=== PATIENT | male | born 1970 | race Caucasian/White ===

== ENCOUNTER 2016-07-05 16:28 | Emergency (ER) | payer BC ==
[~2016-07-05] VITALS: Wt 97.5 kg
[~2016-07-05 16:28] MED LIST: FLEXERIL5 MG PO; HYDROCODONE BIT1 T11 PO; INDOCIN50 MG PO; MOTRIN800 MG PO; NAPROSYN500 MG PO; NORCO 325 MG-7.1 TAB PO; PHENERGAN25 M1 PO; PRILOSEC20 MG PO; SEPTRA DS 800 M1 TAB PO; VICODIN 500 MG-1 TAB PO; WELLBUTRIN SR150 MG PO
[2016-07-05] MEDS ORDERED: OXYCODONE HCL5 MG PO (16:46)
[2016-07-05 17:21] LABS: BASO % 0.4 % (0.0-1.0); EOS # 0.3 10*3/uL (0.0-0.4); HEMATOCRIT 44.7 % (42.0-52.0); HEMOGLOBIN 14.6 g/dl (14.0-18.0); LYMPH # 2.1 10*3/uL (1.3-4.4); LYMPH % 21.4 % (27.0-41.0); MEAN CELL VOLUME 86.6 fl (80.0-94.0); MEAN CORPUSCULAR HGB 28.3 pg (27.0-31.0); MEAN CORPUSCULAR HGB CONC 32.7 g/dl (33.0-37.0); MEAN PLATELET VOLUME 10.2 fl (9.6-12.3); MONO # 0.9 10*3/uL (0.1-1.0); MONO % 9.2 % (3.0-9.0); NEUT # 6.5 10*3/uL (2.3-7.9); NEUT % 65.6 % (47.0-73.0); PLATELET COUNT AUTOMATED 214 10*3/uL (130-400); RED BLOOD COUNT 5.16 10*6/uL (4.50-5.90); RED CELL DISTRI WIDTH 14.2 % (0-14.5); WHITE BLOOD COUNT 9.8 10*3/uL (4.8-10.8)
[2016-07-05 17:40] LABS: ALBUMIN 3.8 gm/dl (3.1-4.5); ALKALINE PHOSPHATASE 85 U/L (45-117); BILIRUBIN, TOTAL 0.5 mg/dl (0.2-1.0); BUN 13 mg/dl (7-24); CARBON DIOXIDE 28 mmol/L (21-32); CHLORIDE 109 mmol/L (98-107); EST GLOM FILT AFRICAN AMERICAN > 60 ml/min; GLUCOSE 85 mg/dL (65-99); POTASSIUM 3.6 mmol/L (3.5-5.1); SGOT/AST 29 IU/L (3-35); SGPT/ALT 48 U/L (12-78); SODIUM 136 mmol/L (136-145); TOTAL PROTEIN 7.6 gm/dL (6.4-8.2)
[2016-07-05] MEDS ORDERED: PREDNISONE20 M1 PO (18:40)
[2016-07-05] MEDS ORDERED: AMOXICILLIN500 M2 PO (18:40)
[2016-07-05] MEDS ORDERED: DUONEB 3 MG/3 ML3 M1 INH (18:40)
== END 2016-07-05 18:44 | disposition home or self-care (01) ==
LOC: ED 16:28
PROVIDERS: Nurse Practitioner Family
DX: J20.9 Acute bronchitis, unspecified (principal)

== ENCOUNTER 2017-11-27 13:02 | Emergency (ER) | payer OTHER, BC ==
[~2017-11-27] VITALS: Ht 172.7 cm; Wt 99.8 kg
--- NOTE | ~2017-11-27 | EKG ---
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
[~2017-11-27 13:02] MED LIST changes: +AMOXICILLIN500 M2 PO; +DUONEB 3 MG/3 ML3 M1 INH; +OXYCODONE HCL5 MG PO; +PREDNISONE20 M1 PO
[2017-11-27 13:21] LABS: BASO # 0.1 10*3/uL (0.0-0.1); BASO % 0.7 % (0.0-1.0); EOS # 0.3 10*3/uL (0.0-0.4); EOS % 4.2 % (1.0-4.0); HEMATOCRIT 43.6 % (42.0-52.0); HEMOGLOBIN 14.3 g/dl (14.0-18.0); LYMPH # 1.5 10*3/uL (1.3-4.4); LYMPH % 21.3 % (27.0-41.0); MEAN CORPUSCULAR HGB 29.2 pg (27.0-31.0); MEAN CORPUSCULAR HGB CONC 32.8 g/dl (33.0-37.0); MEAN PLATELET VOLUME 10.7 fl (9.6-12.3); MONO # 0.7 10*3/uL (0.1-1.0); MONO % 9.9 % (3.0-9.0); NEUT # 4.6 10*3/uL (2.3-7.9); NEUT % 63.5 % (47.0-73.0); PLATELET COUNT AUTOMATED 178 10*3/uL (130-400); RED CELL DISTRI WIDTH 13.7 % (0-14.5); WHITE BLOOD COUNT 7.2 10*3/uL (4.8-10.8)
[2017-11-27 13:39] LABS: ALBUMIN 3.8 gm/dl (3.1-4.5); ALKALINE PHOSPHATASE 70 U/L (45-117); BUN 17 mg/dl (7-24); CHLORIDE 109 mmol/L (98-107); CREATININE 1.14 mg/dL (0.70-1.30); LIPASE 149 U/L (73-393); POTASSIUM 4.1 mmol/L (3.5-5.1); SGOT/AST 28 IU/L (3-35); SGPT/ALT 56 U/L (12-78); SODIUM 139 mmol/L (136-145); TOTAL PROTEIN 7.1 gm/dL (6.4-8.2)
[2017-11-27 13:40] LABS: TROPONIN I < 0.015 ng/ml (<0.045)
[2017-11-27] MEDS ORDERED: CHLORZOXAZONE500 M2 PO (13:45)
[2017-11-27] MEDS ORDERED: PREDNISONE10 MG PO (13:45)
== END 2017-11-27 14:18 | disposition home or self-care (01) ==
LOC: ED 13:02
PROVIDERS: Nurse Practitioner Family
DX: R07.9 Chest pain, unspecified (principal); R03.0 Elevated blood-pressure reading, without diagnosis of hypertension; Z91.030 Bee allergy status; Z79.2 Long term (current) use of antibiotics; Z79.899 Other long term (current) drug therapy

== ENCOUNTER → 2018-04-17 | Outpatient (CLI) | payer BC ==
[~2018-04-17] MED LIST changes: +CHLORZOXAZONE500 M2 PO; +PREDNISONE10 MG PO
== END | disposition home or self-care (01) ==
LOC: RAD 11:18
DX: R19.7 Diarrhea, unspecified (principal)

== ENCOUNTER 2019-09-17 17:59 | Emergency (ER) | payer BC ==
[~2019-09-17] VITALS: Ht 170.1 cm; Wt 103.0 kg
[2019-09-17] MEDS ORDERED: AUGMENTIN 875-875 MG PO (19:29)
== END 2019-09-17 19:45 | disposition home or self-care (01) ==
LOC: ED 17:59
DX: S61.303A Unspecified open wound of left middle finger with damage to nail, initial encounter (principal); S61.302A Unspecified open wound of right middle finger with damage to nail, initial encounter; Z79.899 Other long term (current) drug therapy; Z91.030 Bee allergy status; W54.0XXA Bitten by dog, initial encounter; Y93.89 Activity, other specified; Y92.89 Other specified places as the place of occurrence of the external cause; Y99.8 Other external cause status

== ENCOUNTER 2020-02-11 11:00 | Emergency (ER) | payer OTHER, BC ==
[~2020-02-11] VITALS: Ht 170.1 cm; Wt 102.5 kg
[~2020-02-11 11:00] MED LIST changes: +AUGMENTIN 875-875 MG PO
== END 2020-02-11 12:17 | disposition home or self-care (01) ==
LOC: ED 11:00
DX: J06.9 Acute upper respiratory infection, unspecified (principal); R05 Cough; Z91.030 Bee allergy status; Z79.899 Other long term (current) drug therapy; Z20.828 Contact with and (suspected) exposure to other viral communicable diseases

== ENCOUNTER → 2020-06-30 | Outpatient (CLI) | payer OTHER | END | disposition home or self-care (01) | LOC: CARD 13:40 | PROVIDERS: ATTEND Family Medicine | DX: R06.02 Shortness of breath (principal) ==

== ENCOUNTER → 2020-09-21 | Outpatient (CLI) | payer OTHER | END | disposition home or self-care (01) | LOC: MRI 09:57 | PROVIDERS: ATTEND Psychiatry & Neurology Neurology | DX: M51.34 Other intervertebral disc degeneration, thoracic region (principal); M50.30 Other cervical disc degeneration, unspecified cervical region; M25.78 Osteophyte, vertebrae ==

== ENCOUNTER 2021-07-12 16:17 | Emergency (ER) | payer OTHER, BC ==
[~2021-07-12] VITALS: Ht 170.1 cm; Wt 94.3 kg
[2021-07-12] MEDS ORDERED: NAPROSYN500 MG PO (19:29)
[2021-07-12] MEDS ORDERED: Motrin,Rufen800 MG PO (19:39)
== END 2021-07-12 19:37 | disposition home or self-care (01) ==
LOC: ED 16:17
DX: S46.911A Strain of unspecified muscle, fascia and tendon at shoulder and upper arm level, right arm, initial encounter (principal); Z79.899 Other long term (current) drug therapy; X50.0XXA Overexertion from strenuous movement or load, initial encounter; Y93.89 Activity, other specified; Y92.89 Other specified places as the place of occurrence of the external cause; Y99.8 Other external cause status